=== PATIENT | male | born 1990 | race Caucasian/White ===

== ENCOUNTER 2020-07-18 18:48 | Emergency (ER) | payer OTHER, SELFPAY ==
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
[2020-07-18 19:00] VITALS: BP 124/63; PULSE 67; RESP 16; TEMP 36.6; O2SAT 97; BMI 26.2
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
[2020-07-18 20:56] VITALS: BP 116/58; PULSE 61; RESP 16; TEMP 36.4
--- NOTE | 2020-07-18 21:00 | PC.NURSE ---
PT A/OX3, RESP UNLABORED. [facility]. NEUROS INTACT.[facility] 15.
== END 2020-07-18 21:36 | disposition home or self-care (01) ==
PROVIDERS: Emergency Provider Internal Medicine
DX: S06.0X0A Concussion without loss of consciousness, initial encounter (principal); S00.83XA Contusion of other part of head, initial encounter; S13.4XXA Sprain of ligaments of cervical spine, initial encounter; S29.012A Strain of muscle and tendon of back wall of thorax, initial encounter; S39.012A Strain of muscle, fascia and tendon of lower back, initial encounter; V43.62XA Car passenger injured in collision with other type car in traffic accident, initial encounter; W22.12XA Striking against or struck by front passenger side automobile airbag, initial encounter; G89.11 Acute pain due to trauma; M79.642 Pain in left hand; M25.512 Pain in left shoulder; Y93.89 Activity, other specified; Y92.414 Local residential or business street as the place of occurrence of the external cause; Y99.9 Unspecified external cause status
CPT/HCPCS: 70450; 72125; 73030; 73120; 99284

== ENCOUNTER 2021-09-19 23:51 | Emergency (ER) | payer MEDICAID, SELFPAY ==
[2021-09-20] VITALS: PULSE 76; RESP 16; TEMP 36.9; O2SAT 97; BMI 28.1
--- NOTE | 2021-09-20 00:19 | ED.GENADULT ---
HPI - General Adult General Chief complaint: General Medical Stated complaint: throat pain Time Seen by Provider: 09/19/21 23:59 Source: patient Mode of arrival: ambulatory Limitations: no limitations History of Present Illness HPI narrative: 30 y/o male presents to the ER c/o sore throat for the last 2 days. He reports pain with swallowing. He reports having red spots in the back of his throat but denies any tonsillar swelling or white spots on his tonsils. He has been eating and drinking normally but reports pain with swallowing. No fever chills. No runny nose or nasal congestion. No history of seasonal allergies. No known sick contacts. He is worried he may have COVID and would like to get swabbed. MD complaint: sore throat Onset (ago): day(s) (2) Location: mouth Radiation: non-radiation Severity: moderate Severity scale (1-10): 5 Quality: stabbing and aching Pain Consistency: constant Relieving factors: none Exacerbating factors: other (eating) Associated symptoms: headaches Treatments prior to arrival: none Related Data Previous Rx's Medication Instructions Recorded cyclobenzaprine 10 mg tablet 10 mg PO TID PRN #30 tab 07/18/20 Allergies Allergy/AdvReac Type Severity Reaction Status Date / Time No Known Allergies Allergy Unverified 02/18/20 16:02 Review of Systems Review of Systems: Constitutional: No Fever, No Chills ENT/Mouth: + sore throat, No Rhinorrhea, No Swallowing Difficulty Cardiovascular: No Chest Pain, No SOB Respiratory: No Cough, No Sputum, No Wheezing, No dyspnea Gastrointestinal: No Nausea, No Vomiting, No Diarrhea, No abdominal Pain Musculoskeletal: No joint pain, No Myalgias Skin: No Skin Lesions, No rash Neuro: No Dizziness, No Headache Heme/Lymph: No Lymphadenopathy PMFSH Past Medical History Medical History (Updated 09/20/21 @ 00:23 by ROSELYN Hunter) Asthma Social History Social History Advance Directives: No Physical Exam ED Vital Signs: Vital Signs - 24 hr 09/20/21 00:00 Temperature 98.5 F Pulse Rate 76 Respiratory Rate 16 Pulse Oximetry 97 BMI result Body Mass Index 28.1 Appearance: Alert. Oriented X3. No acute distress. Eyes: Pupils equal, round and reactive to light. ENT: Pharynx with mild generalized erythema, mild tonsillar swelling but no exudates, uvula midline. normal voice. Neck: Normal inspection. Neck supple. CVS: Normal heart rate and rhythm. Pulses normal. Respiratory: No respiratory distress. Breath sounds normal. Skin: Skin warm and dry. Normal skin color. Normal skin turgor. No rashes. Extremities: No lower extremity edema. Neuro: Oriented X 3. Grossly normal, nonfocal Course Course Course Narrative: 30 healthy male presents to the ER c/o sore throat x2 days. VS normal. Exam unremarkable. Swabbed for Strep, Flu and COVID. Reevaluation(s) Reevaluation #1: Patient is negative for strep, flu, COVID. Reviewed symptomatic care [id number] treatment options. Stable for [place] home. Medical Decision Making Lab Data Labs: Lab Results 09/20/21 09/20/21 09/20/21 Range/Units 00:04 00:04 00:04 COVID-19 ([facility]) Negative (Negative) COVID-19 Clin Com See Note Influenza Type A ([facility]) Negative (Negative) Influenza Type B ([facility]) Negative (Negative) Influenza A & B Note See Note S. pyogenes GrpA [facility] Negative (Negative) Discharge Plan Discharge Clinical Impression: Pharyngitis Patient Disposition: Home, Self-Care Instructions: Pharyngitis (ED) Additional Instructions: You are negative for influenza, COVID and strep throat. Recommend gargling with warm salt water several times per day. Drink plenty of fluids. Take Motrin and/or Tylenol as needed for sore throat and pain. Use over the counter Cepacol lozenges or Chloraseptic spray as needed for sore thoat. If you develop new or worsening symptoms call 911 or come back to the ER for further evaluation. Prescriptions: No Action cyclobenzaprine 10 mg tablet 10 mg PO TID PRN (Reason: muscle spasm) Qty: 30 0RF Stand Alone Forms: Work/School Release
[2021-09-20 00:24] LABS: Strep A Nucleic Acid Negative (Negative)
[2021-09-20 00:34] LABS: COVID-19 Test Negative (Negative); IDNOW Serial# 16C4AD1C; Influenza A Negative (Negative); Influenza B2 Negative (Negative)
== END 2021-09-20 00:45 | disposition home or self-care (01) ==
PROVIDERS: Student in an Organized Health Care Education/Training Program; Emergency Provider Emergency Medicine Emergency Medical Services
DX: J02.9 Acute pharyngitis, unspecified (principal); Z20.822 Contact with and (suspected) exposure to COVID-19
CPT/HCPCS: 36415; 87502; 87635; 87651; 99283

== ENCOUNTER 2021-09-21 17:22 | Emergency (ER) | payer MEDICAID, SELFPAY ==
[2021-09-21 17:38] VITALS: BP 146/90; PULSE 78; RESP 18; TEMP 36.9; O2SAT 98; BMI 28.1
[2021-09-21 18:07] LABS: Strep A Nucleic Acid Negative (Negative)
[2021-09-21 18:20] LABS: COVID-19 Test Negative (Negative); IDNOW Serial# 08D9AD1C; Influenza A Negative (Negative); Influenza B2 Negative (Negative)
--- NOTE | 2021-09-21 19:05 | ED.GENADULT ---
HPI - General Adult General Chief complaint: Upper Respiratory Symptoms Stated complaint: Sore throat Time Seen by Provider: 09/21/21 18:36 Source: patient Mode of arrival: ambulatory Limitations: no limitations History of Present Illness HPI narrative: This is a 30-year-old male no significant medical history presenting to the emergency department with complaints of sore throat x4 days. Patient tells me that it hurts when he swallows. He describes it as a burning sensation in it stings. He tells me he was seen here and he was discharged with no antibiotics. He tells me he has not noted any difficulty with controlling his saliva, he has been eating and drinking well. He denies any sick contacts. He denies fevers, chills, nausea, vomiting, chest pain, shortness of breath. Patient speaking to me in full sentences in no acute distress, neck pain Related Data Previous Rx's Medication Instructions Recorded cyclobenzaprine 10 mg tablet 10 mg PO TID PRN #30 tab 07/18/20 Magic Mouthwash 5 ml PO TID #240 ml 09/21/21 Diphen/Lido/Antacid 1:1:1 240 mL suspension Allergies Allergy/AdvReac Type Severity Reaction Status Date / Time No Known Allergies Allergy Unverified 02/18/20 16:02 Review of Systems Review of Systems: Constitutional : No Weight loss, No Fever, No Chills, No Fatigue, No Malaise ENT/Mouth : + sore throat, No Rhinorrhea Eyes: No Eye Pain, No Swelling, No Redness Cardiovascular : No Chest Pain, No SOB, No Dyspnea on Exertion, No Orthopnea, No Edema, No Palpitations Respiratory : No Cough, No Sputum, No Wheezing Gastrointestinal : No Nausea, No Vomiting, No Diarrhea, No Constipation, No abdominal Pain, No Hematochezia, No Melena Genitourinary : No Dysuria, No Urinary Frequency, No Hematuria, Musculoskeletal : No joint pain, No Myalgias, No Joint Swelling Skin : No Skin Lesions, No rash Neuro : No Weakness, No Numbness, No Dizziness, No Headache Psych : No Anxiety/Panic, No Depression All other systems reviewed and are negative Yes all other systems are reviewed and are negative PMFSH Past Medical History Attestation statement: The following information was validated with the patient. Source: old records reviewed and nursing notes reviewed Medical History (Updated 09/21/21 @ 19:16 by ROSELYN Simmons) Asthma Social History Social History Advance Directives: No Advance Directives Information Provided: No Physical Exam ED Vital Signs: Vital Signs - 24 hr 09/21/21 17:38 Temperature 98.4 F Pulse Rate 78 Respiratory Rate 18 Blood Pressure 146/90 H Pulse Oximetry 98 BMI result Body Mass Index 28.1 Vital signs stable Appearance: Alert.? Oriented X3.? No acute distress.? Patient speaking in full sentences, controlling secretions well. No trismus. Head: Normocephalic, atraumatic, no step-offs or deformities Eyes: Pupils equal, round and reactive to light.? ENT: Bilateral tonsils normal and not edematous, no overlying erythema or exudates. Uvula midline. There are canker sores noted to the back of the throat, roof of the mouth in next to the right tonsil. Neck: Normal inspection.? Neck supple.? CVS: Normal heart rate and rhythm.? Pulses normal.? Respiratory: No respiratory distress.? Breath sounds normal.? Abdomen: Soft and nontender.? Skin: Skin warm and dry.? Normal skin color.? Normal skin turgor.? Extremities: No lower extremity edema.? No calf ttp. 5/5 strength to bilateral upper and lower extremities Back: No midline tenderness, no C-spine tenderness, full range of motion, no CVA tenderness bilaterally Neuro: Oriented X 3.? No motor deficit.? No sensory deficit. CN 2-12 intact Course Reevaluation(s) Reevaluation #1: Discussed discharge with patient. He will be discharged home with Magic mouthwash swish and spit. Advised him to return with new or worsening symptoms. Comfortable with discharge home Medical Decision Making MDM Narrative Medical decision making narrative: 1900 30-year-old male presents with sore throat x4 days worsening. Physical exam without edema to bilateral tonsils no overlying erythema, no exudates. There are canker sores noted to the back of the throat, roof of the mouth in next to the right tonsil. Midline uvula, controlling secretions well speaking in full sentences. No trismus noted. Lungs clear. Regular rate and rhythm. Vital signs stable. Abdomen soft nontender nondistended. Neuro exam nonfocal. No palpable lymphadenopathy Plan at this time is flu, COVID, strep test. Based off patient history and physical examination unlikely that this is epiglottitis, no signs of peritonsillar abscess, likely apthus ulcers. No rashes noted unlikely that this is [id number] Medical Records Medical records reviewed: Yes I reviewed the patient's medical records. Lab Data Lab results reviewed: Yes I reviewed the patient's lab results. Labs: Lab Results 09/21/21 09/21/21 09/21/21 Range/Units 17:49 17:49 17:49 COVID-19 ([facility]) Negative (Negative) COVID-19 Clin Com See Note Influenza Type A ([facility]) Negative (Negative) Influenza Type B ([facility]) Negative (Negative) Influenza A & B Note See Note S. pyogenes GrpA [facility] Negative (Negative) Critical Care Time Critical Care Time Critical Care Time: No Discharge Plan Discharge Clinical Impression: Aphthous ulcer of mouth Patient Disposition: Home, Self-Care Instructions: Canker Sores (ED) Additional Instructions: Take your medications as prescribed. Follow-up with your primary care provider this week. Return to the emergency department with new or worsening symptoms. Such as fevers, chills, chest pain, shortness of breath, nausea, vomiting, dizziness, headache, vision changes, lethargy, difficulty speaking, difficulty swallowing, trouble controlling saliva. In case of emergency call 911 Your COVID, flu and strep test were all negative today. Prescriptions: New Magic Mouthwash Diphen/Lido/Antacid 1:1:1 240 mL suspension 5 ml PO TID Qty: 240 0RF Rx Instructions: Lidocaine Viscous 2 % 80mL; diphenhydramine 12.5 mg/5 mL 80mL; aluminum-mag hydrox-simeth [id number]/5mL 80mL Swish and spit No Action cyclobenzaprine 10 mg tablet 10 mg PO TID PRN (Reason: muscle spasm) Qty: 30 0RF Referrals: [facility] [Primary Care Provider] - 2 days Stand Alone Forms: Work/School Release
[2021-09-21] MEDS: Lidocaine HCl Viscous 2 % 15 ML SOLUTION MUCOUS MEM (19:20)
== END 2021-09-21 19:35 | disposition home or self-care (01) ==
PROVIDERS: Emergency Provider Internal Medicine
DX: K12.0 Recurrent oral aphthae (principal); J02.8 Acute pharyngitis due to other specified organisms; Z20.822 Contact with and (suspected) exposure to COVID-19; Z79.899 Other long term (current) drug therapy
CPT/HCPCS: 36415; 87502; 87635; 87651; 99283

== ENCOUNTER 2022-02-15 02:20 | Emergency (ER) | payer MEDICAID, SELFPAY ==
--- NOTE | 2022-02-15 02:55 | ED.ALLEREA ---
HPI - Allergic Reaction General Chief complaint: Allergic Reaction Stated complaint: rash all over body Time Seen by Provider: 02/15/22 02:55 Source: patient Mode of arrival: ambulatory Limitations: no limitations History of Present Illness HPI narrative: Patient with no history of allergic reaction had some banana and candy and drank some cool aid within 1 hour of that started having urticarial rash all over the body including the face trunk and extremities no shortness of breath no throat pain no lip or tongue swelling patient never had a click in the past Related Data Previous Rx's Medication Instructions Recorded cyclobenzaprine 10 mg tablet 10 mg PO TID PRN muscle spasm #30 07/18/20 tabs Magic Mouthwash 5 ml PO TID #240 mL 09/21/21 Diphen/Lido/Antacid 1:1:1 240 mL suspension diphenhydramine HCl 25 mg capsule 50 mg PO Q6-8H PRN allergy 02/15/22 (Benadryl) symptoms #20 caps famotidine 20 mg tablet (Pepcid) 20 mg PO DAILY #14 tabs 02/15/22 prednisone 20 mg tablet 40 mg PO DAILY #10 tabs 02/15/22 Allergies Allergy/AdvReac Type Severity Reaction Status Date / Time No Known Allergies Allergy Verified 02/15/22 03:10 Review of Systems Review of Systems: Yes all other systems are reviewed and are negative PMFSH Past Medical History Medical History Asthma Social History Social History Advance Directives: No Advance Directives Information Provided: Yes Physical Exam ED Vital Signs: Vital Signs - 24 hr 02/15/22 03:11 02/15/22 04:26 Temperature 98.6 F Pulse Rate 59 60 Respiratory Rate 16 16 Blood Pressure 137/61 133/60 Pulse Oximetry 98 98 Oxygen Delivery Method Room Air Room Air BMI result Body Mass Index 25.0 Appearance: Alert. Oriented X3. Hives all over reaching ENT: Pharynx normal. Oral Mucosa moist tongue and lips normal Neck: Normal inspection. Neck supple. CVS: Normal heart rate and rhythm. Pulses normal. Respiratory: No respiratory distress. Equal air entry bilateral, no wheezing/rales/rhonchi Abdomen: Soft and nontender. Bowel sounds are present, Skin: Diffuse urticaria all over the trunk and extremities and face Extremities: No lower extremity edema. No calf tenderness Neuro: Oriented X 3. MDM - Allergic Reaction MDM Narrative Medical decision making narrative: Patient felt better after epi injection, Benadryl, Solu-Medrol, Pepcid etiology of rash is not very clear advised patient to follow-up with PCP Discharge Plan Discharge Clinical Impression: Urticaria Patient Disposition: Home, Self-Care Instructions: Urticaria (ED) Additional Instructions: Cause of your allergic reactions not really clear check the foods you ate likely one of the food cause so allergic reaction Prescriptions: New prednisone 20 mg tablet 40 mg PO DAILY Qty: 10 0RF diphenhydramine HCl [Benadryl] 25 mg capsule 50 mg PO Q6-8H PRN (Reason: allergy symptoms) Qty: 20 0RF famotidine [Pepcid] 20 mg tablet 20 mg PO DAILY Qty: 14 0RF No Action cyclobenzaprine 10 mg tablet 10 mg PO TID PRN (Reason: muscle spasm) Qty: 30 0RF Magic Mouthwash Diphen/Lido/Antacid 1:1:1 240 mL suspension 5 ml PO TID Qty: 240 0RF Rx Instructions: Lidocaine Viscous 2 % 80mL; diphenhydramine 12.5 mg/5 mL 80mL; aluminum-mag hydrox-simeth [id number]/5mL 80mL Swish and spit
[2022-02-15] MEDS: EPINEPHrine 1 MG/ML VIAL 0.3 MG IM (03:05)
[2022-02-15] MEDS: diphenhydrAMINE HCL 50 MG/ML VIAL 25 MG IVPUSH (03:07)
[2022-02-15] MEDS: Famotidine/PF 20 MG/2 ML VIAL IVPUSH (03:07)
[2022-02-15 03:10] VITALS: BMI 25.0
[2022-02-15 03:11] VITALS: BP 137/61; PULSE 59; RESP 16; O2SAT 98
[2022-02-15] MEDS: dexAMETHasone sod phosphate 10 MG/ML VIAL IVPUSH (03:17)
[2022-02-15 04:26] VITALS: BP 133/60; PULSE 60; RESP 16; TEMP 37; O2SAT 98
[2022-02-15 05:49] VITALS: BP 125/62; PULSE 63; RESP 16; TEMP 36.7; O2SAT 99
== END 2022-02-15 05:50 | disposition home or self-care (01) ==
PROVIDERS: Emergency Provider Internal Medicine
DX: L50.0 Allergic urticaria (principal); R21 Rash and other nonspecific skin eruption; Z79.899 Other long term (current) drug therapy
CPT/HCPCS: 96372; 96374; 96375; 99284; J0171; J1100; J1200

== ENCOUNTER 2024-01-21 02:49 | Emergency (ER) | payer MEDICAID, SELFPAY ==
[2024-01-21 03:11] VITALS: BP 127/78; PULSE 57; RESP 16; TEMP 36.7; O2SAT 97; BMI 26.0
[2024-01-21 05:22] VITALS: BP 133/82; PULSE 54; RESP 16; TEMP 36.4; O2SAT 97
--- NOTE | 2024-01-21 05:54 | ED_ITS ---
HPI - Skin/Abscess/Foreign Bdy General Chief complaint: Skin/Abscess/Foreign Body Stated complaint: ? bite wrist swollen itchy red painful Time Seen by Provider: 01/21/24 05:46 Source: patient Mode of arrival: ambulatory Limitations: no limitations History of Present Illness ED Provider: MARIELOS HPI narrative: 33 yo male no sig PMH here with bite or itching rash to L wrist x 2 days unsure what happened area is red and itchy is has mildly spread he is not sure what or how it happened. No other rash MD complaint: rash Onset (ago): day(s) (2) Tetanus up to date: yes Location: LUE Severity: moderate Quality: pruritic Relieving factors: none Exacerbating factors: none Context: other Associated symptoms: denies other symptoms Treatments prior to arrival: none Related Data Previous Rx's ?Medication ?Instructions ?Recorded cyclobenzaprine 10 mg tablet 10 mg PO TID PRN muscle spasm #30 07/18/20 tabs Magic Mouthwash 5 ml PO TID #240 mL 09/21/21 Diphen/Lido/Antacid 1:1:1 240 mL suspension diphenhydramine HCl 25 mg capsule 50 mg (2 x 25 mg) PO Q6-8H PRN 02/15/22 (Benadryl) allergy symptoms #20 caps famotidine 20 mg tablet (Pepcid) 20 mg PO DAILY #14 tabs 02/15/22 prednisone 20 mg tablet 40 mg (2 x 20 mg) PO DAILY #10 tabs 02/15/22 cephalexin 500 mg capsule 500 mg PO QID 7 days #28 caps 01/21/24 prednisone 20 mg tablet 40 mg (2 x 20 mg) PO DAILY 5 days 01/21/24 #10 tabs Allergies Allergy/AdvReac Type Severity Reaction Status Date / Time No Known Allergies Allergy Verified 01/21/24 03:13 Review of Systems Review of Systems: Constitutional : No Fever, No Chills ENT/Mouth : No sore throat, No Rhinorrhea Eyes: No Eye Pain, No Swelling, No Redness Cardiovascular : No Chest Pain, No SOB Respiratory : No Cough, No Sputum Gastrointestinal : No Nausea, No Vomiting, No Diarrhea, No abdominal Pain Genitourinary : No Dysuria, No Hematuria Musculoskeletal : No joint pain, No Myalgias, No Joint Swelling Skin : No Skin Lesions, positive skin rash Neuro : No Weakness, No Numbness, No Headache All other systems reviewed and are negative [facility] Past Medical History Attestation statement: The following information was validated with the patient. Source: old records reviewed Medical History Asthma Social History Social History (Updated 01/21/24 @ 06:00 by Marleen De La Cruz DO) Patient Tobacco Use Status: Never used Tobacco Physical Exam Vital Signs: Vital Signs: Last Vital Signs Temp 97.5 F 01/21/24 05:22 Pulse 54 01/21/24 05:22 Resp 16 01/21/24 05:22 BP 133/82 01/21/24 05:22 Pulse Ox 97 01/21/24 05:22 O2 Del Method Room Air 01/21/24 05:22 BMI result Body Mass Index 26.0 Appearance: Alert. Oriented X3. No acute distress. Eyes: Pupils equal, round and reactive to light. ENT: Pharynx normal. Neck: Normal inspection. CVS: Pulses normal. Respiratory: No respiratory distress. Abdomen: atraumatic Skin: Skin warm and dry. Normal skin color. Extremities: No lower extremity edema. L wrist scaling rash noted with area of dark pigment noted no warmth no drainage no fluctuance appears like contact dermatitic area is about 5 to 6cm in site Neuro: Oriented X 3. No motor deficit. No sensory deficit. Medical Decision Making Medical Decision Making [facility] Narrative: 33 yo male with no sig PMH here with scaling rash and dermatitis of L wrist at this time could be bite with localized reaction vs early mild cellulitis will start on prednisone and cephalexin no signs of abscess or fluctuance Differential Diagnosis Differential Diagnoses: The differential diagnosis associated with the presentation includes Prescription Management I considered prescription management with: Antibiotic and Other Discharge Plan Discharge Clinical Impression: Contact dermatitis, Insect bite Patient Disposition: Home, Self-Care Instructions: Contact Dermatitis (ED) Additional Instructions: take both medications return for any worsening redness, yellow drainage or fevers keep area clean and dry Prescriptions: New prednisone 20 mg tablet 40 mg PO DAILY 5 Days Qty: 10 0RF cephalexin 500 mg capsule 500 mg PO QID 7 Days Qty: 28 0RF No Action cyclobenzaprine 10 mg tablet 10 mg PO TID PRN (Reason: muscle spasm) Qty: 30 0RF Magic Mouthwash Diphen/Lido/Antacid 1:1:1 240 mL suspension 5 ml PO TID Qty: 240 0RF Rx Instructions: Lidocaine Viscous 2 % 80mL; diphenhydramine 12.5 mg/5 mL 80mL; aluminum-mag hydrox-simeth [id number]/5mL 80mL Swish and spit prednisone 20 mg tablet 40 mg PO DAILY Qty: 10 0RF diphenhydramine HCl [Benadryl] 25 mg capsule 50 mg PO Q6-8H PRN (Reason: allergy symptoms) Qty: 20 0RF famotidine [Pepcid] 20 mg tablet 20 mg PO DAILY Qty: 14 0RF Stand Alone Forms: Work/School Release Print Language: Urdu
[2024-01-21 06:07] VITALS: BP 133/82; PULSE 54; RESP 16; TEMP 36.4; O2SAT 97
== END 2024-01-21 06:07 | disposition home or self-care (01) ==
PROVIDERS: Emergency Provider Emergency Medicine
DX: L25.9 Unspecified contact dermatitis, unspecified cause (principal); L29.9 Pruritus, unspecified
CPT/HCPCS: 99283

== ENCOUNTER 2024-03-06 00:28 | Emergency (ER) | payer OTHER, SELFPAY ==
[2024-03-06 00:31] VITALS: BP 121/76; PULSE 63; RESP 18; TEMP 36.7; O2SAT 98; BMI 25.8
[2024-03-06 00:55] LABS: IDNOW Serial# 08D9AD1C; Strep A Nucleic Acid Negative (Negative)
[2024-03-06 01:20] LABS: Influenza A PCR NEGATIVE (Negative); Influenza B PCR NEGATIVE (Negative); Resp Syncy Virus RNA Qual PCR NEGATIVE (Negative); SARS COV2 PCR INHOUSE NEGATIVE (Negative)
--- NOTE | 2024-03-06 01:31 | ED_ITS ---
HPI - General Adult General Chief complaint: General Medical Stated complaint: sore throat/ dif. swallowing Time Seen by Provider: 03/06/24 01:23 Source: patient Mode of arrival: ambulatory Limitations: no limitations History of Present Illness ED Provider: MARIELOS Related Data Previous Rx's ?Medication ?Instructions ?Recorded cyclobenzaprine 10 mg tablet 10 mg PO TID PRN muscle spasm #30 07/18/20 tabs Magic Mouthwash 5 ml PO TID #240 mL 09/21/21 Diphen/Lido/Antacid 1:1:1 240 mL suspension diphenhydramine HCl 25 mg capsule 50 mg (2 x 25 mg) PO Q6-8H PRN 02/15/22 (Benadryl) allergy symptoms #20 caps famotidine 20 mg tablet (Pepcid) 20 mg PO DAILY #14 tabs 02/15/22 prednisone 20 mg tablet 40 mg (2 x 20 mg) PO DAILY #10 tabs 02/15/22 cephalexin 500 mg capsule 500 mg PO QID 7 days #28 caps 01/21/24 prednisone 20 mg tablet 40 mg (2 x 20 mg) PO DAILY 5 days 01/21/24 #10 tabs Allergies Allergy/AdvReac Type Severity Reaction Status Date / Time No Known Allergies Allergy Verified 03/06/24 00:33 [facility] Past Medical History Medical History Asthma Social History Social History (Updated 01/21/24 @ 06:00 by Marleen De La Cruz DO) Patient Tobacco Use Status: Never used Tobacco Advance Directives: No Advance Directives Information Provided: No Do you have a plan to hurt others: No Plan Physical Exam ED Vital Signs: Vital Signs - 24 hr 03/06/24 00:31 Temperature 98.1 F Pulse Rate 63 Respiratory Rate 18 Blood Pressure 121/76 Pulse Oximetry 98 Oxygen Delivery Method Room Air BMI result Body Mass Index 25.8 Medical Decision Making Differential Diagnosis Differential Diagnoses: The differential diagnosis associated with the presentation includes Lab Data Labs: Lab Results 03/06/24 Range/Units 00:38 Influenza Type A (PCR) NEGATIVE (Negative) Influenza Type B (PCR) NEGATIVE (Negative) RSV RNA Qual (PCR) NEGATIVE (Negative) SARS-CoV-2 RNA (RT-PCR) NEGATIVE (Negative) S. pyogenes GrpA BRIAN Negative (Negative) Discharge Plan Discharge Prescriptions: No Action cyclobenzaprine 10 mg tablet 10 mg PO TID PRN (Reason: muscle spasm) Qty: 30 0RF Magic Mouthwash Diphen/Lido/Antacid 1:1:1 240 mL suspension 5 ml PO TID Qty: 240 0RF Rx Instructions: Lidocaine Viscous 2 % 80mL; diphenhydramine 12.5 mg/5 mL 80mL; aluminum-mag hydrox-simeth [id number]/5mL 80mL Swish and spit prednisone 20 mg tablet 40 mg PO DAILY Qty: 10 0RF diphenhydramine HCl [Benadryl] 25 mg capsule 50 mg PO Q6-8H PRN (Reason: allergy symptoms) Qty: 20 0RF famotidine [Pepcid] 20 mg tablet 20 mg PO DAILY Qty: 14 0RF prednisone 20 mg tablet 40 mg PO DAILY 5 Days Qty: 10 0RF cephalexin 500 mg capsule 500 mg PO QID 7 Days Qty: 28 0RF Print Language: Romanian
--- NOTE | 2024-03-06 01:55 | ED.URI ---
HPI - URI/Sore Throat General Chief Complaint: General Medical Stated Complaint: sore throat/ dif. swallowing Time Seen by Provider: 03/06/24 01:23 Source: patient Mode of arrival: ambulatory Limitations: no limitations History of Present Illness ED Provider: MARIELOS CHEN Narrative: 33 yo male with PMH of asthma here with c/o sore throat and difficulty swallowing x 1 day. Trying cepacol without relief. He denies fevers but overall doesn't feel well. No STI concerns. MD elicited complaint: sore throat Onset (ago): day(s) (1) Consistency: constant Severity: moderate Description of mucous: clear Able to tolerate fluids by mouth: Yes Exacerbating factors: swallowing Relieving factors: nothing Associated symptoms: sore throat Treatments prior to arrival: cold medicine Related Data Previous Rx's ?Medication ?Instructions ?Recorded cyclobenzaprine 10 mg tablet 10 mg PO TID PRN muscle spasm #30 07/18/20 tabs Magic Mouthwash 5 ml PO TID #240 mL 09/21/21 Diphen/Lido/Antacid 1:1:1 240 mL suspension diphenhydramine HCl 25 mg capsule 50 mg (2 x 25 mg) PO Q6-8H PRN 02/15/22 (Benadryl) allergy symptoms #20 caps famotidine 20 mg tablet (Pepcid) 20 mg PO DAILY #14 tabs 02/15/22 prednisone 20 mg tablet 40 mg (2 x 20 mg) PO DAILY #10 tabs 02/15/22 cephalexin 500 mg capsule 500 mg PO QID 7 days #28 caps 01/21/24 prednisone 20 mg tablet 40 mg (2 x 20 mg) PO DAILY 5 days 01/21/24 #10 tabs amoxicillin 500 mg tablet 500 mg PO BID #19 tabs 03/06/24 Allergies Allergy/AdvReac Type Severity Reaction Status Date / Time No Known Allergies Allergy Verified 03/06/24 00:33 Review of Systems Review of Systems: Constitutional : No Fever, No Chills, No Fatigue ENT/Mouth : pos sore throat, No Rhinorrhea Eyes: No Eye Pain, No Swelling, No Redness Cardiovascular : No Chest Pain, No SOB, No Dyspnea on Exertion Respiratory : No Cough, No Sputum Gastrointestinal : No Nausea, No Vomiting, No Diarrhea, No abdominal Pain Musculoskeletal : No joint pain, No Myalgias, No Joint Swelling Skin : No Skin Lesions, No rash Neuro : No Weakness, No Numbness, No Dizziness, no Headache All other systems reviewed and are negative [facility] Past Medical History Attestation statement: The following information was validated with the patient. Source: old records reviewed Medical History Asthma Social History Social History Patient Tobacco Use Status: Never used Tobacco Advance Directives: No Advance Directives Information Provided: No Do you have a plan to hurt others: No Plan Physical Exam Vital Signs: Vital Signs: Last Vital Signs Temp 98.1 F 03/06/24 00:31 Pulse 63 03/06/24 00:31 Resp 18 03/06/24 00:31 BP 121/76 03/06/24 00:31 Pulse Ox 98 03/06/24 00:31 O2 Del Method Room Air 03/06/24 00:31 BMI result Body Mass Index 25.8 Appearance: Alert. Oriented X3. No acute distress. Eyes: Pupils equal, round and reactive to light. ENT: Pharynx moderate swelling with bilateral tonsilar swelling with exudates on both tonsils uvula is midline no drooling voice is normal Neck: Normal inspection. mild anterior cervical lymphadenopathy CVS: Normal heart rate and rhythm. Pulses normal. Respiratory: No respiratory distress. Breath sounds normal. Abdomen: Soft and nontender. Skin: Skin warm and dry. Normal skin color. Extremities: No lower extremity edema. Neuro: Oriented X 3. No motor deficit. No sensory deficit. Medical Decision Making Medical Decision Making [facility] Narrative: 33 yo male with PMH of asthma here with sore throat clinically throat is swollen has no exudates looks like strep throat has no cough or any other URI symptoms will order strep swab - will put on motrin and steroids start amoxicillin. Differential Diagnosis Differential Diagnoses: The differential diagnosis associated with the presentation includes URI, strep throat, viral syndrome clinically looks like strep throat no concern for deeper space infection or [employer] at this time Lab Data [facility] Lab Attestation statement: I reviewed the patient's lab results. Labs: Lab Results 03/06/24 Range/Units 00:38 Influenza Type A (PCR) NEGATIVE (Negative) Influenza Type B (PCR) NEGATIVE (Negative) RSV RNA Qual (PCR) NEGATIVE (Negative) SARS-CoV-2 RNA (RT-PCR) NEGATIVE (Negative) S. pyogenes GrpA [facility]AN Negative (Negative) External Record Review External record reviewed: Office record Prescription Management I considered prescription management with: Antibiotic Discharge Plan Discharge Clinical Impression: Acute tonsillitis Qualifiers: Pharyngitis/tonsillitis etiology: other specified organisms Qualified Code(s): J03.80 - Acute tonsillitis due to other specified organisms Patient Disposition: Home, Self-Care Instructions: Tonsillitis (ED) Additional Instructions: negative flu and covid negative strep finish antibiotics return for any worsening symptoms or concerns mini Prescriptions: New amoxicillin 500 mg tablet 500 mg PO BID Qty: 19 0RF No Action cyclobenzaprine 10 mg tablet 10 mg PO TID PRN (Reason: muscle spasm) Qty: 30 0RF Magic Mouthwash Diphen/Lido/Antacid 1:1:1 240 mL suspension 5 ml PO TID Qty: 240 0RF Rx Instructions: Lidocaine Viscous 2 % 80mL; diphenhydramine 12.5 mg/5 mL 80mL; aluminum-mag hydrox-simeth [id number]/5mL 80mL Swish and spit prednisone 20 mg tablet 40 mg PO DAILY Qty: 10 0RF diphenhydramine HCl [Benadryl] 25 mg capsule 50 mg PO Q6-8H PRN (Reason: allergy symptoms) Qty: 20 0RF famotidine [Pepcid] 20 mg tablet 20 mg PO DAILY Qty: 14 0RF prednisone 20 mg tablet 40 mg PO DAILY 5 Days Qty: 10 0RF cephalexin 500 mg capsule 500 mg PO QID 7 Days Qty: 28 0RF Stand Alone Forms: Work/School Release Print Language: Swiss
[2024-03-06] MEDS: Lidocaine HCl Viscous 2 % 15 ML SOLUTION MUCOUS MEM (02:01)
[2024-03-06] MEDS: Amoxicillin 500 MG CAPSULE PO (02:01)
[2024-03-06] MEDS: dexAMETHasone sod phosphate 4 MG/ML VIAL 8 MG PO (02:01)
[2024-03-06] MEDS: Ibuprofen 400 MG TABLET PO (02:01)
[2024-03-06 02:09] VITALS: BP 121/76; PULSE 63; RESP 18; TEMP 36.7; O2SAT 98
== END 2024-03-06 02:10 | disposition home or self-care (01) ==
PROVIDERS: Emergency Provider Emergency Medicine
DX: J03.80 Acute tonsillitis due to other specified organisms (principal); J45.909 Unspecified asthma, uncomplicated; Z03.818 Encounter for observation for suspected exposure to other biological agents ruled out
CPT/HCPCS: 0241U; 87651; 99283; J1100

== ENCOUNTER 2025-05-26 11:42 | Emergency (ER) | payer SELFPAY ==
--- NOTE | ~2025-05-26 | XR_ITS ---
EXAMINATION: XR CHEST 2 VIEWS HISTORY: cough COMPARISON: Comparison is made with the prior examination dated 11/11/2019. FINDINGS: PA and lateral views of the chest are submitted. The lungs are expanded and clear. There is no pleural effusion, pneumothorax, or pulmonary vascular congestion. The heart is normal in size. The bones are intact. XR/XR chest 2V IMPRESSION: No acute cardiopulmonary abnormality. Electronically signed by: Holland Shane MD 05/26/2025 01:09 PM [facility]
[2025-05-26 12:15] VITALS: BP 131/71; PULSE 99; RESP 16; TEMP 37.2; O2SAT 98; BMI 25.8
--- OUTSIDE RECORDS SUMMARY | 2025-05-26 12:35 | XMS_ITS | Clinical Summary ---
Author Organization [facility] Address [address] [place] [address] Care Team Providers Care Spray Ii Painter Name Role Phone Unavailable Primary Care Provider Unavailabl e Allergies No known active allergies Medications methocarbamol (ROBAXIN) 750 MG tablet Take 2 tablets (1,500 mg total) by mouth 3 (three) times a day. 18 tablet 03/19/2022 Active naproxen (NAPROSYN) 500 MG tablet Take 1 tablet (500 mg total) by mouth 2 (two) times a day with meals. Take with food. 15 tablet 03/19/2022 Active Social History Tobacco Use Types Packs/Day Years Used Date Smoking Tobacco: Never Assessed Sex and Gender Information Value Date Recorded Sex Assigned at Not on file Legal Sex Male 2:40 AM EDT Gender Identity Not on file Sexual Orientation Not on file Last Filed Vital Signs Vital Sign Reading Time Taken Comments Blood Pressure 112/78 03/19/2022 2:44 AM EDT Pulse 60 03/19/2022 2:44 AM EDT Temperature 35.2 C (95.4 F) 03/19/2022 2:45 AM EDT Respiratory Rate 18 03/19/2022 2:44 AM EDT Oxygen Saturation 99% 03/19/2022 2:44 AM EDT Inhaled Oxygen Concentration - - Weight - - Height - - Body Mass Index - - Plan of Treatment Health Maintenance Due Date Last Done Comments Hepatitis C Virus Screening 1990 HIV Screening 11/18/2003 DTaP/Tdap/Td Vaccines (1 - Tdap) 2009 Hepatitis B Vaccines (1 of 3 - 19+ 3-dose series) 2009 Influenza Vaccine 01/01/2025 COVID-19 Vaccine (2 - 2024-2 6 season) 2025 07/25/2021 HPV Vaccines (No Doses Required) Completed Pneumococcal Vaccine: Pediat connor (0-5 Years) and At-Risk Patients (6 to 49 Years) Aged Out No longer eligible b ased on patient's age to complete this topic Insurance [facility] [address] [id number] [employer]
--- OUTSIDE RECORDS SUMMARY | 2025-05-26 12:35 | XMS_ITS | Clinical Summary ---
Author Organization [employer] Address [address] [place] [address] Care Team Providers Care Cut Tobacco Bulker Name Role Phone Unavailable Primary Care Provider Unavailabl e Social History Tobacco Use Types Packs/Day Years Used Date Smoking Tobacco: Never Assessed Sex and Gender Information Value Date Recorded Sex Assigned at Male 04/02/2022 10:35 AM EDT Legal Sex Male 10:35 AM EDT Gender Identity Male 04/02/2022 10:35 AM EDT Sexual Orientation Straight 04/02/2022 10 :35 AM EDT Last Filed Vital Signs Vital Sign Reading Time Taken Comments Blood Pressure 133/87 09/22/2021 12:04 AM EDT Pulse 68 09/22/2021 12:04 AM EDT Temperature - - Respiratory Rate - - Oxygen Saturation - - Inhaled Oxygen Concentration - - Weight 81.9 kg (180 lb 9.5 oz) 09/22/2021 12:04 AM EDT Height 170.2 cm (5' 7 ) 09/22/2021 12:04 AM EDT Body Mass Index 28.29 09/22/2021 12:04 AM EDT Plan of Treatment Health Maintenance Due Date Last Done Comments Depression Screening 1990 HIV Screening 1990 SDOH Screening 1990 Disability Screening 1990 Alcohol/Substance Use Screening 2002 Tobacco Screening 2002 Family Planning (PISQ) 2005 HPV Vaccines (1 - Male 3-dos e series) 2005 Hepatitis C Screening 2008 Hepatitis B Vaccines (1 of 3 - 19+ 3-dose series) 2009 Pneumococcal Vaccine: Pediatrics (0 to 5 Years) and At-Risk Patients (6 to 49) Years (2 of 2 - PCV) 09/05/2016 09/06/2015 COVID-19 Vaccine (1 - 2024-2 6 season) 2025 Influenza Vaccine (#1) 2025 9, 09/06/2015 DTaP/Tdap/Td Vaccines (3 - T d or Tdap) 04/03/2029 04/03/2019, 02/15/2015, 09/30/2014 Zoster Vaccines (1 of 2) 2040 RSV Patients and Patients Aged 60 years or older (1 - 1-dose 75+ series) 2065 HIB Vaccines Aged Out No longer eligi ble based on patient's age to complete this topic Hepatitis A Vaccines Aged Out No long er eligible based on patient's age to complete this topic IPV Vaccines Aged Out No longer eligi ble based on patient's age to complete this topic Meningococcal B Vaccine Aged Out No l onger eligible based on patient's age to complete this topic Meningococcal Vaccine Aged Out No everardo roula eligible based on patient's age to complete this topic RSV under 20 months Aged Out No longe r eligible based on patient's age to complete this topic Rotavirus Vaccines Aged Out No longer eligible based on patient's age to complete this topic Insurance [facility] [employer]
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
--- OUTSIDE RECORDS SUMMARY | 2025-05-26 12:35 | XMS_ITS | Encounter Summary ---
Author Organization [facility] Address [address] [place] [id number] Phone Care Team Providers Care Ball Maker Name Role Phone Holland Harmon Primary Care Provider [phone] Encounter Details Date Type Department Care Team (Late st Contact Info) Description 04/04/2017 Conversion Encounter [facility] [address] [place] [address] Social History Tobacco Use Types Packs/Day Years Used Date Smoking Tobacco: Never Assessed Sex and Gender Information Value Date Recorded Sex Assigned at Not on file Legal Sex Male 4:23 PM EDT Gender Identity Not on file Sexual Orientation Not on file documented as of this encounter Plan of Treatment Not on file documented as of this encounter Visit Diagnoses Not on filedocumented in this encounter Care Teams Ball Maker Relationship Specialty Start Date End Date Holland Harmon [address] [place] [address] PCP - General 01/11/17 documented as of this encounter
--- OUTSIDE RECORDS SUMMARY | 2025-05-26 12:35 | XMS_ITS | Clinical Summary ---
Author Organization [facility] Address [address] [place] [phone] Phone Care Team Providers Care Blower Blast Furnace Name Role Phone Holland Harmon Primary Care Provider [phone] Immunizations Immunization Administration Dates Next Due DTP 01/30/1996, 3,07/12/1992,08/17,04/29/1991 Hep B, ped/adol 03/10/1997,04/09/1996,01/30/1996 Hib (PRP-T) 02/23/1993, 3,08/18/1991,04/29 MMR 01/30/1996,07/12/1992 Meningococcal Conj (Menactra) MCV4P 09/27/2005 OPV 01/30/1996, 3,08/18/1991,04/29 Td (adult) (MBL), 2 Lf tetan us toxoid, PF, adsorbed 04/19/2003 Varicella 02/16/1997 Social History Tobacco Use Types Packs/Day Years Used Date Smoking Tobacco: Never Assessed Sex and Gender Information Value Date Recorded Sex Assigned at Not on file Legal Sex Male 4:23 PM EDT Gender Identity Not on file Sexual Orientation Not on file Plan of Treatment Health Maintenance Due Date Last Done Comments Varicella Vaccines (2 of 2 - 2-dose childhood series) 05/11/1997 02/16/1997 DTaP,Tdap,and Td Vaccines (6 - Tdap) 04/20/2003 04/19/2003, 01/30/1996, 11/23/1992, Additional history exists HPV Vaccines (1 - 3-dose SCDM series) 2017 Influenza Vaccines (#1) 2025 COVID-19 Vaccine ( season) 2025 HIB Vaccines Completed 02/23/1993, 02/1993, 08/18/1991, Additional history exists IPV Vaccines Completed 01/30/1996, 02/1993, 08/18/1991, Additional history exists MMR Vaccines Completed 01/30/1996, 07/12/1992 Hepatitis B Vaccines Completed 03/10/1997, 04/09/1996, 01/30/1996 Meningococcal Vaccine Aged Out 09/27/2005 No everardo roula eligible based on patient's age to complete this topic Hepatitis A Vaccines Aged Out No long er eligible based on patient's age to complete this topic Men B Vaccine Aged Out No longer elig ible based on patient's age to complete this topic Pneumococcal Vaccine Aged Out No long er eligible based on patient's age to complete this topic Care Teams Blower Blast Furnace Relationship Specialty Start Date End Date Holland Harmon [address] [place] [id number] PCP - General 01/11/17
--- NOTE | 2025-05-26 13:33 | ED_ITS ---
HPI - General Adult General Chief complaint: General Medical Stated complaint: flu like symptoms Time Seen by Provider: 05/26/25 12:05 Source: patient Mode of arrival: ambulatory Limitations: no limitations History of Present Illness ED Provider: CHELITA MCGREGOR PA-C HPI narrative: 34 year old male presents to the ED today for evaluation of myalgias, cough, chest congestion, nasal congestion, headaches x3 days. Has sick contacts at home. Denies fever, chills, chest pain, sob, N/V/D, urinary sx. Related Data Previous Rx's ?Medication ?Instructions ?Recorded cyclobenzaprine 10 mg tablet 10 mg PO TID PRN muscle s pasm #30 07/18/20 tabs Magic Mouthwash 5 ml PO TID #240 mL 09/21/21 Diphen/Lido/Antacid 1:1:1 240 mL suspension diphenhydramine HCl 25 mg capsule 50 mg (2 x 25 mg) PO Q6-8H PRN 02/15/22 (Benadryl) allergy symptoms #20 caps famotidine 20 mg tablet (Pepcid) 20 mg PO DAILY #14 ta bs 02/15/22 prednisone 20 mg tablet 40 mg (2 x 20 mg) PO DAILY # 10 tabs 02/15/22 cephalexin 500 mg capsule 500 mg PO QID 7 days #28 cap s 01/21/24 prednisone 20 mg tablet 40 mg (2 x 20 mg) PO DAILY 5 days 01/21/24 #10 tabs amoxicillin 500 mg tablet 500 mg PO BID #19 tabs 03/06 benzonatate 100 mg capsule 100 mg PO BID PRN cough #20 caps 05/26/25 ondansetron 4 mg disintegrating 4 mg PO Q8H PRN nausea and 05/26/25 tablet vomiting #10 tabs Allergies Allergy/AdvReac Type Severity Reaction Status Date / Time No Known Allergies Allergy Verified 05/26/25 12:16 Review of Systems Review of Systems: Yes all other systems are reviewed and are negative PMFSH Past Medical History Attestation statement: The following information was validated with the patient. Source: old records reviewed and nursing notes reviewed Medical History Asthma Social History Social History Patient Tobacco Use Status: Never used Tobacco Physical Exam ED Vital Signs: Vital Signs - 24 hr 05/26/25 12:15 05/26/25 14:13 05/26/25 14:52 Temperature 99.0 F 100.7 F H 100.7 F H Pulse Rate 99 92 92 Respiratory Rate 16 16 16 Blood Pressure 131/71 127/71 127/71 Pulse Oximetry 98 95 95 Oxygen Delivery Method Room Air BMI result Body Mass Index 25.8 febrile 100.7F vitals are otherwise wnl General: well appearing, in no acute distress. Skin: Warm, dry, intact. No rashes or lesions. Head: Normocephalic, atraumatic. EENT: Hearing is intact b/l. Conjunctiva clear. PERRLA. EOM intact. Moist mucous membranes.?posterior oropharynx without erythema or edema, no tonsillar exudates or peritonsillar masses. Uvula midline, controlling secretions and speaking complete sentences. Neck: Supple without LAD? Cardiac: Chest wall symmetric. RRR Lungs: Normal respiratory effort without accessory muscle use. CTA bilaterally. No rales, rhonchi, or wheezes.? Abdomen: Soft, non-tender, non-distended. No rebound tenderness or guarding. Positive BS x4. Ext: Upper and lower extremities atraumatic, without tenderness, deformity, swelling or erythema. Full ROM throughout Neuro: AOx3. Normal speech. Ambulating with steady gait Course Course Course Narrative: Patient tested positive for influenza A. Negative COVID, RSV. Chest x-ray without evidence of pneumonia. Patient is out of the window for Tamiflu administration. Will treat supportively. Advised Tylenol/Motrin, Zofran and Tessalon Perles sent to pharmacy. He is tolerating PO. Patient has remained stable throughout ED visit today. Discussed worrisome signs and symptoms and when to return to the ED. All questions answered at this time. Patient is agreeable with disposition and stable for discharge. Medications Administered Discontinued Medications Generic Name Dose Route Start Last Admin Trade Name Freq PRN Reason Stop Dose Admin Ibuprofen 600 mg 05/26/25 13:39 05/26/25 13:41 Ibuprofen 600 Mg Tablet PO 05/26/25 13:40 600 mg ONCE ONE Administration Medical Decision Making Medical Decision Making MDM Narrative: 34 year old male presents to the ED today for evaluation of myalgias, cough, chest congestion, nasal congestion, headaches x3 days. Patient has low-grade temp, vitals are otherwise WNL. He is generally well-appearing. Your exam is benign. Differential diagnosis includes viral syndrome, pneumonia, bronchitis Plan for viral swabs, chest x-ray, re-evaluation. Differential Diagnosis Differential Diagnoses: The differential diagnosis associated with the presentation includes as above. Admission/Observation not indicated. Lab Data MDM Lab Attestation statement: I reviewed the patient's lab results. as above. Labs: Lab Results 05/26/25 Range/Units 13:05 Influenza Type A (PCR) POSITIVE A (Negative) Influenza Type B (PCR) NEGATIVE (Negative) RSV RNA Qual (PCR) NEGATIVE (Negative) SARS-CoV-2 RNA (RT-PCR) NEGATIVE (Negative) Independent Interpretation I performed an independent interpretation of an: Plain X-Ray Interpretation: Chest x-ray without infiltrate or consolidation Radiology Impression Discussion of test interpretation with radiology: I have reviewed the radiologist's reading. Radiologist Impression: Procedure(s): XR chest 2V Accession Number(s): [id number] cc: [facility] Reason for Exam: cough EXAMINATION: XR CHEST 2 VIEWS HISTORY: cough COMPARISON: Comparison is made with the prior examination dated 11/11/2019. FINDINGS: PA and lateral views of the chest are submitted. The lungs are expanded and clear. There is no pleural effusion, pneumothorax, or pulmonary vascular congestion. The heart is normal in size. The bones are intact. XR/XR chest 2V IMPRESSION: No acute cardiopulmonary abnormality. Electronically signed by: Holland Shane MD 05/26/2025 01:09 PM [facility] External Record Review External record reviewed: Inpatient record Critical Care Time Critical Care Time Critical Care Time: No Discharge Plan Discharge Clinical Impression: Influenza A Patient Disposition: Home, Self-Care Instructions: Influenza (ED), Droplet Precautions (ED) Additional Instructions: You tested negative for influenza A. You tested negative for COVID and RSV. Your chest x-ray is reassuring and does not show any evidence of pneumonia. Influenza is a virus and does not warrant treatment with antibiotics. Treatment for influenza is supportive. Make sure you are staying adequately hydrated and getting lots of rest. I am sending testobi garrison to your pharmacy for you to take as needed for cough. Jimmie has been sent to your pharmacy for you to take as needed for nausea and vomiting. Alter ibuprofen and Tylenol for fevers and body aches. Follow up with your primary care provider. If symptoms persist or worsen please return to the emergency department. The case of an emergency call 911. Prescriptions: New benzonatate 100 mg capsule 100 mg PO BID PRN (Reason: cough) Qty: 20 0RF ondansetron 4 mg tablet,disintegrating 4 mg PO Q8H PRN (Reason: nausea and vomiting) Qty: 10 0RF No Action cyclobenzaprine 10 mg tablet 10 mg PO TID PRN (Reason: muscle spasm) Qty: 30 0RF Magic Mouthwash Diphen/Lido/Antacid 1:1:1 240 mL suspension 5 ml PO TID Qty: 240 0RF Rx Instructions: Lidocaine Viscous 2 % 80mL; diphenhydramine 12.5 mg/5 mL 80mL; aluminum-mag hydrox-simeth [id number]/5mL 80mL Swish and spit prednisone 20 mg tablet 40 mg PO DAILY Qty: 10 0RF diphenhydramine HCl [Benadryl] 25 mg capsule 50 mg PO Q6-8H PRN (Reason: allergy symptoms) Qty: 20 0RF famotidine [Pepcid] 20 mg tablet 20 mg PO DAILY Qty: 14 0RF prednisone 20 mg tablet 40 mg PO DAILY 5 Days Qty: 10 0RF cephalexin 500 mg capsule 500 mg PO QID 7 Days Qty: 28 0RF amoxicillin 500 mg tablet 500 mg PO BID Qty: 19 0RF Referrals: [facility] [Primary Care Provider, Medical] Stand Alone Forms: Work/School Release Interventions: ED Discharge Assessment Last Done: 05/26/25 14:52 Discharge Date/Time: 05/26/25 14:55 Print Language: Beninese
[2025-05-26 13:56] LABS: Resp Syncy Virus RNA Qual PCR NEGATIVE (Negative); SARS COV2 PCR INHOUSE NEGATIVE (Negative)
[2025-05-26 14:13] VITALS: BP 127/71; PULSE 92; RESP 16; TEMP 38.2; O2SAT 95
[2025-05-26 14:52] VITALS: BP 127/71; PULSE 92; RESP 16; TEMP 38.2; O2SAT 95
== END 2025-05-26 14:55 | disposition home or self-care (01) ==
PROVIDERS: Physician Assistant Medical; Emergency Provider Emergency Medicine
DX: J10.1 Influenza due to other identified influenza virus with other respiratory manifestations (principal); R05.9 Cough, unspecified; Z03.818 Encounter for observation for suspected exposure to other biological agents ruled out; J45.909 Unspecified asthma, uncomplicated; Z79.899 Other long term (current) drug therapy
CPT/HCPCS: 71046; 87637; 99284

== ENCOUNTER → 2025-05-26 12:40 | Outpatient (BNV) | payer SELFPAY | PROVIDERS: Emergency Provider Emergency Medicine; Visit Provider Radiology Diagnostic Radiology | DX: R05.9 Cough, unspecified (principal) | CPT/HCPCS: 71046 ==